=== PATIENT | female | born 1940 | race Caucasian/White ===

== ENCOUNTER 2022-08-27 19:08 | Inpatient (IN) | payer OTHER ==
[~2022-08-27] VITALS: Ht 165.1 cm; Wt 79.7 kg
[2022-08-27] MEDS ORDERED: SODIUM CHLORIDE 0.9% 1,000 ML IV ONE ×3 (19:30→22:00)
[2022-08-27] MEDS ORDERED: NOREPINEPHRINE 8 MG/250ML KIT 250 ML IV ONE (19:38)
[2022-08-27] MEDS: NOREPINEPHRINE 8 MG/250ML KIT 250 ML IV SCH (19:40)
[2022-08-27 20:06] LABS: Hemoglobin 16.9 g/dL (12.2-16.2)
[2022-08-27 20:10] LABS: Hematocrit 51.6 % (36.0-46.0); Mean Corpuscular Hemoglobin 32.8 pg (28.0-32.0); Mean Corpuscular Hgb Conc. 32.8 g/dL (32.0-36.0); Red Blood Cells 5.16 10^6/uL (4.0-5.20); Red Cell Distribution Width 16.1 % (11.8-14.3)
[2022-08-27 20:21] LABS: Basophils % (manual) 0 (0.0-2.0); Blast Cells 0; Eosinophils % (manual) 0 (0-7); INR 2.15 (0.9-1.15); Metamyelocytes % 0; Myelocytes % 0; Partial Thromboplastin Time 30.5 sec (24.6-33.4); Promyelocytes % 0; Reactive Lymphocytes 0; White Blood Cell 42.3 10^3/uL (4.4-10.8)
[2022-08-27] MEDS ORDERED: VANCOMYCIN PER PHARMACY 0 MG IV SCH ×2 (20:30→22:30)
[2022-08-27 20:31] LABS: Lactic Acid w/Reflex 13.1 mmol/L (0.4-2.0)
[2022-08-27] MEDS ORDERED: VANCOMYCIN 1GM/250ML 250 ML IV ONE (21:00)
[2022-08-27 21:22] LABS: Urine Bacteria FEW /hpf (None Seen); Urine Blood Negative /uL (Negative); Urine Mucus FEW (None Seen); Urine Specific Gravity 1.023 (1.001-1.035); Urine WBC 7 /hpf (0 - 5)
[2022-08-27] MEDS ORDERED: IOHEXOL 350 MG/ML 100ML IJ ONE (21:22)
[2022-08-27 21:38] LABS: Albumin 1.8 g/dL (3.4-5.0); BUN/Creatinine Ratio 12.1 (10.0-20.0); Calcium 8.4 mg/dL (8.5-10.1); Potassium 3.7 mmol/L (3.5-5.1)
[2022-08-27 21:42] LABS: Band Neutrophils % (manual) 22; Lymphocytes % (manual) 2 (10.0-50.0); Monocytes % (manual) 8 (0-12)
[2022-08-27 21:54] LABS: Lactic Acid w/Reflex 12.8 mmol/L (0.4-2.0)
[2022-08-27 21:55] LABS: Bilirubin, Total 1.8 mg/dL (0.2-1.0); Total Protein 5.4 g/dL (6.4-8.2)
[2022-08-27] MEDS ORDERED: PIPERACILLIN-TAZOB 3.375GM 100 ML IV SCH (22:00)
[2022-08-27] MEDS ORDERED: DEXTROSE 10% 1,000 ML IV ONE (22:15)
[2022-08-27] MEDS ORDERED: DEXTROSE (50%) 50ML SYRG IV ONE (22:15)
[2022-08-27] MEDS ORDERED: DEXTROSE 10% 250 ML IV ONE (22:15)
[2022-08-27] MEDS ORDERED: PANTOPRAZOLE 40 MG/10 ML VIAL INJ IV ONE (22:30)
[2022-08-27] MEDS ORDERED: DEXTROSE 10% 250 ML IV PRN (22:30)
[2022-08-27] MEDS ORDERED: MORPHINE SULFATE INJ 2 MG/ml SYRG IV PRN ×2 (22:30)
[2022-08-27] MEDS ORDERED: ACETAMINOPHEN 325 MG TAB PO PRN (22:30)
[2022-08-27] MEDS ORDERED: LORazepam 2MG/ML-1ML VIAL IV PRN (22:30)
[2022-08-27] MEDS ORDERED: NITROGLYCERIN 0.4 MG SL TAB SL PRN (22:30)
[2022-08-27] MEDS ORDERED: THIAMINE 100mg/ml INJ (200mg/2ml VIAL) IV ONE (22:30)
[2022-08-27] MEDS ORDERED: FOLIC ACID 1 MG in D5W 5% 50 ML INJ SCH (22:30)
[2022-08-27] MEDS ORDERED: HYDROcodone-ACET 5/325MG TAB PO PRN (22:30)
[2022-08-27] MEDS ORDERED: DEXTROSE (50%) 50ML SYRG IV PRN (22:45)
[2022-08-27] MEDS: ACCU-CHEK COMFORT CURVE STRIP VI SCH ×2 (22:45→23:45)
[2022-08-27] MEDS ORDERED: D5W/SOD CHL 0.45% 1,000 ML IV SCH (22:45)
[2022-08-27 23:18] LABS: Magnesium 2.3 mg/dL (1.6-2.6)
[2022-08-27 23:18] LABS: Alcohol, Urine < 3.0 mg/dL (0-10); Amphetamine Screen, Urine NEGATIVE (NEGATIVE); Barbiturate Scree,Urine NEGATIVE (NEGATIVE); Benzodiazephine Screen, Urine NEGATIVE (NEGATIVE); Cannabinoid Screen, Urine POSITIVE (NEGATIVE); Cocaine Screen, Urine NEGATIVE (NEGATIVE); Opiate Scree,Urine NEGATIVE (NEGATIVE); Phencyclidine Screen, Urine NEGATIVE (NEGATIVE)
[2022-08-27 23:23] LABS: Amylase 254 U/L (25-115); Blood Alcohol < 3.0 mg/dL (0-5); Cholesterol 72 mg/dL (< 200); HDL Cholesterol 23 mg/dL (40-59); LDL Cholesterol 56 mg/dL (< 100); Lipase 46 U/L (73-393); Triglycerides 119 mg/dL (< 150)
[2022-08-27 23:23] LABS: INR 2.55 (0.9-1.15); Partial Thromboplastin Time 39.9 sec (24.6-33.4)
[2022-08-28] VITALS (45 sets, daily range): BP systolic 0–292; BP diastolic 0–152
[2022-08-28] MEDS: ACCU-CHEK COMFORT CURVE STRIP VI SCH ×13 (00:45→23:31)
[2022-08-28] MEDS ORDERED: PIPERACILLIN-TAZOB 3.375GM 100 ML IV SCH (06:00)
[2022-08-28 06:24] LABS: Hematocrit 45.6 % (36.0-46.0); Hemoglobin 14.4 g/dL (12.2-16.2); Mean Corpuscular Hemoglobin 33.1 pg (28.0-32.0); Mean Corpuscular Hgb Conc. 31.6 g/dL (32.0-36.0); Mean Corpuscular Volume 104.9 fL (80.0-100.0); Red Blood Cells 4.34 10^6/uL (4.0-5.20); Red Cell Distribution Width 16.3 % (11.8-14.3)
[2022-08-28 06:34] LABS: White Blood Cell 38.8 10^3/uL (4.4-10.8)
[2022-08-28 06:37] LABS: Basophils % (manual) 0 (0.0-2.0); Blast Cells 0; Eosinophils % (manual) 0 (0-7); Metamyelocytes % 0; Monocytes % (manual) 0 (0-12); Myelocytes % 0; Promyelocytes % 0; Reactive Lymphocytes 0
[2022-08-28 06:38] LABS: Potassium 4.5 mmol/L (3.5-5.1)
[2022-08-28 07:07] LABS: Albumin 1.9 g/dL (3.4-5.0); BUN/Creatinine Ratio 10.9 (10.0-20.0); Bilirubin, Total 2.3 mg/dL (0.2-1.0); Calcium 8.9 mg/dL (8.5-10.1); Total Protein 5.6 g/dL (6.4-8.2)
[2022-08-28] MEDS ORDERED: ETOMIDATE (2MG/ML) 20ML VIAL IV ONE ×2 (07:23→07:45)
[2022-08-28] MEDS ORDERED: SUCCINYLCHOLINE CHLORIDE 20 MG/ML 10ML VIAL IV ONE ×2 (07:23→07:45)
[2022-08-28] MEDS ORDERED: MIDAZOLAM DRIP 50 mg/50mL 50 ML IV ONE (07:31)
[2022-08-28] MEDS ORDERED: MIDAZOLAM DRIP 50 mg/50mL 50 ML IV SCH (08:00)
[2022-08-28] MEDS ORDERED: SODIUM BICARBONATE 8.4 % INJ 50ML VIAL IV ONE ×3 (09:00→20:30)
[2022-08-28] MEDS ORDERED: VASOPRESSIN 20 UNITS in SODIUM CHL 0.9% 99 ML IV SCH (09:00)
[2022-08-28] MEDS ORDERED: SODIUM BICARBONATE 50ML VIAL 150 ML in D5W 5% 1,000 ML IV SCH (09:00)
[2022-08-28] MEDS ORDERED: VANCOMYCIN 1GM/250ML 250 ML IV ONE (09:00)
[2022-08-28 09:34] LABS: Band Neutrophils % (manual) 30; Lymphocytes % (manual) 8 (10.0-50.0)
[2022-08-28] MEDS ORDERED: PANTOPRAZOLE 40 MG/10 ML VIAL INJ IV SCH (10:00)
[2022-08-28] MEDS ORDERED: MULTIPLE VITAMIN TAB PO SCH (10:00)
[2022-08-28] MEDS ORDERED: ENOXAPARIN SOD 30 MG/0.3 ML SYRINGE SC SCH (10:00)
[2022-08-28] MEDS ORDERED: THIAMINE 100mg/ml INJ (200mg/2ml VIAL) IV SCH (10:00)
[2022-08-28 10:19] LABS: Hepatitis A Total Antibody Negative (Negative)
[2022-08-28] MEDS: EPINEPHrine HCL 250 ML IV SCH (10:45)
[2022-08-28] MEDS ORDERED: SODIUM CHLORIDE 0.9% 2,300 ML IV ONE (10:45)
[2022-08-28] MEDS: PHENYLEPHRINE IV 250 ML IV SCH ×2 (10:45→18:30)
[2022-08-28 11:01] LABS: Hepatitis B Surface Antibody Negative (Negative)
[2022-08-28 11:02] LABS: Hepatitis C Antibody Negative (Negative)
[2022-08-28 12:03] LABS: Hepatitis C Antibody Negative (Negative)
[2022-08-28 13:04] LABS: Hepatitis A Ab IgM Negative; Hepatitis B Core IgM Negative
[2022-08-28] MEDS ORDERED: OPTISON 3ml Vial for INJ IV ONE (13:40)
[2022-08-28] MEDS: VASOPRESSIN 20 UNITS in SODIUM CHL 0.9% 99 ML IV SCH ×2 (13:42→20:07)
[2022-08-28] MEDS: SODIUM BICARBONATE 50ML VIAL 150 ML in D5W 5% 1,000 ML IV SCH ×4 (13:47→20:30)
[2022-08-28 14:28] LABS: Hemoglobin 10.6 g/dL (12.2-16.2); Red Cell Distribution Width 17.7 % (11.8-14.3)
[2022-08-28] MEDS ORDERED: ACCU-CHEK COMFORT CURVE STRIP VI SCH (14:30)
[2022-08-28 14:31] LABS: Hematocrit 35.1 % (36.0-46.0); Mean Corpuscular Hemoglobin 33.1 pg (28.0-32.0); Mean Corpuscular Hgb Conc. 30.2 g/dL (32.0-36.0); Mean Corpuscular Volume 109.5 fL (80.0-100.0); White Blood Cell 26.5 10^3/uL (4.4-10.8)
[2022-08-28 14:38] LABS: Basophils % (manual) 0 (0.0-2.0); Blast Cells 0; Eosinophils % (manual) 0 (0-7); Metamyelocytes % 0; Myelocytes % 0; Promyelocytes % 0; Reactive Lymphocytes 0
[2022-08-28] MEDS: NOREPINEPHRINE 8 MG/250ML KIT 250 ML IV SCH ×2 (14:42→19:39)
[2022-08-28] MEDS: MEROPENEM 500MG IVPB 50 ML IV SCH ×2 (14:50→20:49)
[2022-08-28] MEDS ORDERED: DEXTROSE (50%) 50ML SYRG IV PRN (15:00)
[2022-08-28 15:46] LABS: Chloride 98 mmol/L (98-107); Potassium 4.8 mmol/L (3.5-5.1); Sodium 135 mmol/L (136-145)
[2022-08-28 15:47] LABS: Anion Gap 31 (5-15); Glucose 295 mg/dL (74-106)
[2022-08-28 15:48] LABS: Alkaline Phosphatase 479 U/L (45-117); BUN/Creatinine Ratio 8.6 (10.0-20.0); Blood Urea Nitrogen 28 mg/dL (7-18); GFR African American 18 mL/min; GFR Non-African American 15 mL/min
[2022-08-28 15:49] LABS: Aspartate Aminotransferase 16131 U/L (15-37)
[2022-08-28 15:55] LABS: Alanine Aminotransferase 5524 U/L (13-56); Albumin 1.2 g/dL (3.4-5.0); Bilirubin, Total 1.8 mg/dL (0.2-1.0); Calcium 7.6 mg/dL (8.5-10.1); Total Protein 3.4 g/dL (6.4-8.2)
[2022-08-28 15:57] LABS: Carbon Dioxide 6 mmol/L (21-32)
[2022-08-28] MEDS: InsuLIN REG 1unit/0.01ml Soln (100units/ml) SC SCH ×3 (16:00→23:32)
[2022-08-28] MEDS ORDERED: BUMETANIDE 2.5mg/10ml (0.25 mg/ml) INJ IV ONE (16:15)
[2022-08-28] MEDS ORDERED: FUROSEMIDE INJECTION 100 MG in SODIUM CHL 0.9% 100 ML IV SCH (16:15)
[2022-08-28] MEDS: ALBUMIN 25% 100 ML IV SCH ×2 (16:36→23:29)
[2022-08-28 19:16] LABS: Band Neutrophils % (manual) 27; Lymphocytes % (manual) 5 (10.0-50.0); Monocytes % (manual) 7 (0-12)
[2022-08-28] MEDS ORDERED: NOREPINEPHRINE BITARTRATE 32 MG in SODIUM CHL 0.9% 218 ML IV SCH (20:00)
[2022-08-28 20:02] LABS: Hematocrit 34.9 % (36.0-46.0); Mean Corpuscular Hemoglobin 32.3 pg (28.0-32.0); Mean Corpuscular Hgb Conc. 28.7 g/dL (32.0-36.0); Mean Corpuscular Volume 112.7 fL (80.0-100.0); Red Cell Distribution Width 17.8 % (11.8-14.3)
[2022-08-28 20:05] LABS: Albumin 1.9 g/dL (3.4-5.0); Anion Gap 32 (5-15); BUN/Creatinine Ratio 8.3 (10.0-20.0); Blood Urea Nitrogen 25 mg/dL (7-18); Calcium 7.4 mg/dL (8.5-10.1); Chloride 100 mmol/L (98-107); GFR African American 19 mL/min; GFR Non-African American 16 mL/min; Glucose 215 mg/dL (74-106); Potassium 5.3 mmol/L (3.5-5.1); Sodium 139 mmol/L (136-145)
[2022-08-28 20:07] LABS: Alkaline Phosphatase 554 U/L (45-117); Bilirubin, Total 2.3 mg/dL (0.2-1.0); Total Protein 3.8 g/dL (6.4-8.2)
[2022-08-28 20:18] LABS: White Blood Cell 31.2 10^3/uL (4.4-10.8)
[2022-08-28 20:19] LABS: Basophils % (manual) 0 (0.0-2.0); Blast Cells 0; Eosinophils % (manual) 0 (0-7); Myelocytes % 0; Promyelocytes % 0; Reactive Lymphocytes 0
[2022-08-28 20:20] LABS: Carbon Dioxide 7 mmol/L (21-32)
[2022-08-28] MEDS ORDERED: InsuLIN REG 1unit/0.01ml Soln (100units/ml) IV ONE (20:30)
[2022-08-28] MEDS ORDERED: CALCIUM GLUC 1,000mg/50ml-NS 50 ML IV ONE (20:30)
[2022-08-28] MEDS ORDERED: DEXTROSE (50%) 50ML SYRG IV ONE (20:30)
[2022-08-28] MEDS ORDERED: PHENYLEPHRINE IV 250 ML IV ONE (20:40)
[2022-08-28 20:43] LABS: Aspartate Aminotransferase 14163 U/L (15-37)
[2022-08-28 20:44] LABS: Alanine Aminotransferase 4568 U/L (13-56)
[2022-08-28 20:49] LABS: Band Neutrophils % (manual) 28; Lymphocytes % (manual) 8 (10.0-50.0); Metamyelocytes % 2; Monocytes % (manual) 8 (0-12)
[2022-08-28] MEDS: PHENYLEPHRINE INJ 80 MG in SODIUM CHL 0.9% 242 ML IV SCH (22:29)
[2022-08-29] VITALS (23 sets, daily range): BP systolic 67–119; BP diastolic 41–63
[2022-08-29] MEDS: EPINEPHrine HCL 250 ML IV SCH (00:02)
[2022-08-29] MEDS: SODIUM BICARBONATE 50ML VIAL 150 ML in D5W 5% 1,000 ML IV SCH (01:45)
[2022-08-29] MEDS ORDERED: SODIUM BICARBONATE 8.4 % INJ 50ML VIAL IV ONE ×2 (03:13→03:15)
[2022-08-29] MEDS: ACCU-CHEK COMFORT CURVE STRIP VI SCH (03:44)
[2022-08-29] MEDS: InsuLIN REG 1unit/0.01ml Soln (100units/ml) SC SCH (03:45)
[2022-08-29] MEDS: VASOPRESSIN 20 UNITS in SODIUM CHL 0.9% 99 ML IV SCH (04:09)
[2022-08-29] MEDS: PHENYLEPHRINE INJ 80 MG in SODIUM CHL 0.9% 242 ML IV SCH (04:10)
[2022-08-29 04:29] LABS: Hemoglobin 8.1 g/dL (12.2-16.2)
[2022-08-29 04:32] LABS: Hematocrit 33.5 % (36.0-46.0); Mean Corpuscular Hemoglobin 32.5 pg (28.0-32.0); Mean Corpuscular Hgb Conc. 24.2 g/dL (32.0-36.0); Mean Corpuscular Volume 134.6 fL (80.0-100.0); Red Blood Cells 2.49 10^6/uL (4.0-5.20); White Blood Cell 25.5 10^3/uL (4.4-10.8)
[2022-08-29 04:55] LABS: Basophils % (manual) 0 (0.0-2.0); Blast Cells 0; Eosinophils % (manual) 0 (0-7); Metamyelocytes % 0; Myelocytes % 0; Promyelocytes % 0; Reactive Lymphocytes 0
[2022-08-29 05:51] LABS: Potassium 8.4 mmol/L (3.5-5.1)
[2022-08-29 05:52] LABS: BUN/Creatinine Ratio 6.8 (10.0-20.0); Bilirubin, Total 1.8 mg/dL (0.2-1.0); Calcium 6.8 mg/dL (8.5-10.1)
[2022-08-29 05:53] LABS: Bilirubin, Direct 0.5 mg/dL (0-0.2); Total Protein 2.5 g/dL (6.4-8.2)
[2022-08-29 05:54] LABS: Albumin 1.5 g/dL (3.4-5.0)
[2022-08-29 09:39] LABS: Band Neutrophils % (manual) 5; Lymphocytes % (manual) 29 (10.0-50.0); Monocytes % (manual) 4 (0-12)
== END 2022-08-29 14:20 | DRG 871 ==
LOC: EDBD 19:08 → ER 19:08 → TELE 22:45 → ICU WEST 08-28 09:51
PROVIDERS: ADMIT Registered Nurse; ATTEND Internal Medicine
PROC: 02H633Z Insertion of Infusion Device into Right Atrium, Percutaneous Approach (ICD-10-PCS; 2022-08-27)
PROC: 5A1935Z Respiratory Ventilation, Less than 24 Consecutive Hours (ICD-10-PCS; principal; 2022-08-28)
PROC: 0BH17EZ Insertion of Endotracheal Airway into Trachea, Via Natural or Artificial Opening (ICD-10-PCS; 2022-08-28)
PROC: 06HM33Z Insertion of Infusion Device into Right Femoral Vein, Percutaneous Approach (ICD-10-PCS; 2022-08-28)
PROC: B54BZZA Ultrasonography of Right Lower Extremity Veins, Guidance (ICD-10-PCS; 2022-08-28)
PROC: 0D9670Z Drainage of Stomach with Drainage Device, Via Natural or Artificial Opening (ICD-10-PCS; 2022-08-28)
DX: A41.9 Sepsis, unspecified organism (principal); E43 Unspecified severe protein-calorie malnutrition; G92.8 Other toxic encephalopathy; J96.01 Acute respiratory failure with hypoxia; N17.0 Acute kidney failure with tubular necrosis; R65.21 Severe sepsis with septic shock; K72.00 Acute and subacute hepatic failure without coma; K44.0 Diaphragmatic hernia with obstruction, without gangrene; G93.1 Anoxic brain damage, not elsewhere classified; J98.11 Atelectasis; Z66 Do not resuscitate; E16.2 Hypoglycemia, unspecified; F10.10 Alcohol abuse, uncomplicated; I13.10 Hypertensive heart and chronic kidney disease without heart failure, with stage 1 through stage 4 chronic kidney disease, or unspecified chronic kidney disease; N18.9 Chronic kidney disease, unspecified; R91.1 Solitary pulmonary nodule; Z90.49 Acquired absence of other specified parts of digestive tract; Z90.710 Acquired absence of both cervix and uterus; Z82.5 Family history of asthma and other chronic lower respiratory diseases; Z88.2 Allergy status to sulfonamides; Z88.0 Allergy status to penicillin; Z68.28 Body mass index [BMI] 28.0-28.9, adult
CPT/HCPCS: 36415; 36556; 36600; 70450; 71045; 71250; 74176; 76705; 76775; 80048; 80053; 80061; 80074; 80076; 80202; 80307; 80320; 81001; 82105; 82140; 82150; 82805; 82962; 82977; 83036; 83605; 83690; 83735; 84436; 84443; 84481; 84484; 85007; 85027; 85610; 85730; 86304; 86704; 86706; 86708; 86803; 87040; 87070; 87081; 87086; 87205; 87340; 93005; 93306; 93886; 94002; 95819; 99291; C9113; G0378; J0171; J0330; J2185; J2250; J2543; J7060; P9047; Q9956